=== PATIENT | male | born 1970 | race African-American/Black ===

== ENCOUNTER 2017-07-09 00:10 | Emergency (ER) | payer SELFPAY ==
[~2017-07-09] VITALS: Ht 185.4 cm; Wt 87.0 kg
[2017-07-09] MEDS ORDERED: HYDROCODONE/ACETAMINOPHEN 5/325MG TABLET PO ONE (02:15)
[2017-07-09 04:20] VITALS: BP 125/74
== END 2017-07-09 04:20 | disposition home or self-care (01) ==
LOC: ER 01:08
DX: S16.1XXA Strain of muscle, fascia and tendon at neck level, initial encounter (principal); S09.90XA Unspecified injury of head, initial encounter; Y08.89XA Assault by other specified means, initial encounter; Y93.89 Activity, other specified; Y92.89 Other specified places as the place of occurrence of the external cause; Y99.8 Other external cause status
CPT/HCPCS: 70450; 72125; 99284; Z7610

== ENCOUNTER 2017-09-27 09:12 | Emergency (ER) | payer SELFPAY ==
[~2017-09-27] VITALS: Ht 185.4 cm; Wt 100.0 kg
[2017-09-27] MEDS ORDERED: SODIUM CHLORIDE 0.9% 250 ML IV ONE (14:48)
[2017-09-27] MEDS ORDERED: ONDANSETRON HCL 4MG/2ML VIAL IV STA (14:48)
[2017-09-27 16:21] LABS: BASOPHILS % 0.7 % (0.0-2.0); EOSINOPHILS % 0.5 % (0.0-5.0); HEMATOCRIT. 44.4 % (42.0-52.0); HEMOGLOBIN. 15.3 g/dL (14.0-18.0); MEAN CORPUSCULAR HEMOGLOBIN 28.4 pg (28.0-32.0); MEAN CORPUSCULAR VOLUME 82.1 fL (80.0-94.0); MEAN PLATELET VOLUME 7.4 fl (7.4-10.4); MONOCYTES % 9.1 % (2.0-8.0); NEUTROPHILS % 57.7 % (40.0-76.0); PLATELET 203 x1000/uL (130-400); RED CELL DISTRIBUTION WIDTH 15.6 % (11.6-14.6)
[2017-09-27 16:27] LABS: CHLORIDE 102 mEq/L (98-107)
[2017-09-27 17:40] VITALS: BP 124/83
== END 2017-09-27 17:44 | disposition home or self-care (01) ==
LOC: ER 09:47
DX: R53.1 Weakness (principal); R42 Dizziness and giddiness; R11.0 Nausea; F12.10 Cannabis abuse, uncomplicated
CPT/HCPCS: 36415; 80053; 85025; 93005; 96361; 96374; 99285; J2405; J7030; Z7610; J7050

== ENCOUNTER 2018-01-09 18:13 | Inpatient (IN) | payer SELFPAY ==
[~2018-01-09] VITALS: Ht 185.4 cm; Wt 90.7 kg
[2018-01-09] MEDS ORDERED: SODIUM CHLORIDE 0.9% 1,000 ML IV ONE (22:53)
[2018-01-09] MEDS ORDERED: FAMOTIDINE 20MG/2ML VIAL IV STA (22:53)
[2018-01-09] MEDS ORDERED: ONDANSETRON HCL 4MG/2ML INJ IV STA (22:53)
[2018-01-10 00:46] LABS: CHLORIDE 104 mEq/L (98-107)
[2018-01-10 01:00] LABS: BASOPHILS % 0.2 % (0.0-2.0); EOSINOPHILS % 3.3 % (0.0-5.0); HEMATOCRIT. 45.5 % (42.0-52.0); HEMOGLOBIN. 15.5 g/dL (14.0-18.0); LYMPHOCYTES % 24.3 % (20.0-50.0); MEAN CORPUSCULAR HEMOGLOBIN 28.9 pg (28.0-32.0); MEAN PLATELET VOLUME 7.7 fl (7.4-10.4); MONOCYTES % 9.3 % (2.0-8.0); NEUTROPHILS % 62.9 % (40.0-76.0); PLATELET 253 x1000/uL (130-400); RED BLOOD CELL COUNT 5.36 mill/uL (4.7-6.1); RED CELL DISTRIBUTION WIDTH 15.6 % (11.6-14.6)
[2018-01-10] MEDS ORDERED: ONDANSETRON HCL 4MG/2ML INJ IV STA (01:02)
[2018-01-10] MEDS ORDERED: MORPHINE SULFATE 4 MG/ML CPJ (NOT FOR IM USE) IV STA (01:02)
[2018-01-10] MEDS ORDERED: SODIUM CHLORIDE 0.9% 1,000 ML IV ONE (01:02)
[2018-01-10 01:57] LABS: CLARITY URINE CLEAR (CLEAR); COLOR URINE YELLOW (YELLOW); KETONES URINE 1+ (NEGATIVE); LEUKOCYTE ESTERASE URINE NEGATIVE (NEGATIVE); NITRITE URINE NEGATIVE (NEGATIVE); OCCULT BLOOD URINE NEGATIVE (NEGATIVE); PROTEIN URINE NEGATIVE (NEGATIVE); SPECIFIC GRAVITY URINE 1.013 (1.005-1.030)
[2018-01-10] MEDS ORDERED: ONDANSETRON HCL 4MG/2ML INJ IV PRN (06:15)
[2018-01-10] MEDS: MORPHINE SULFATE 4 MG/ML CPJ (NOT FOR IM USE) IV PRN ×3 (06:45→20:29)
[2018-01-10] MEDS: NICOTINE 21MG PATCH TD SCH (06:46)
[2018-01-10 08:00] VITALS: BP 103/54
[2018-01-10] MEDS ORDERED: RISO02 PO (09:45)
[2018-01-10] MEDS ORDERED: TRAZ-212 PO (09:45)
[2018-01-10] MEDS: DEXT 5%/0.9% NACL 1,000 ML IV SCH ×2 (11:21→23:53)
[2018-01-10 12:00] VITALS: BP 98/59
[2018-01-10 16:00] VITALS: BP 114/64
[2018-01-10 16:08] LABS: BASOPHILS % 0.4 % (0.0-2.0); EOSINOPHILS % 4.3 % (0.0-5.0); HEMATOCRIT. 44.7 % (42.0-52.0); LYMPHOCYTES % 29.7 % (20.0-50.0); MEAN CORPUSCULAR HEMOGLOBIN 28.7 pg (28.0-32.0); MEAN CORPUSCULAR VOLUME 85.6 fL (80.0-94.0); MEAN PLATELET VOLUME 7.7 fl (7.4-10.4); MONOCYTES % 9.2 % (2.0-8.0); NEUTROPHILS % 56.4 % (40.0-76.0); PLATELET 221 x1000/uL (130-400); RED BLOOD CELL COUNT 5.22 mill/uL (4.7-6.1); RED CELL DISTRIBUTION WIDTH 15.3 % (11.6-14.6)
[2018-01-10 16:28] LABS: CHLORIDE 108 mEq/L (98-107)
[2018-01-10 20:00] VITALS: BP 110/62
[2018-01-11] VITALS: BP_SYST 121; BP_SYST 99; BP_DIAS 56; BP_DIAS 98
[2018-01-11 04:00] VITALS: BP 121/88
[2018-01-11] MEDS: MORPHINE SULFATE 4 MG/ML CPJ (NOT FOR IM USE) IV PRN ×4 (05:53→21:09)
[2018-01-11 08:00] VITALS: BP 106/67
[2018-01-11] MEDS: NICOTINE 21MG PATCH TD SCH (08:47)
[2018-01-11 12:00] VITALS: BP 108/65
[2018-01-11 15:31] LABS: BASOPHILS % 0.3 % (0.0-2.0); EOSINOPHILS % 3.2 % (0.0-5.0); HEMATOCRIT. 41.6 % (42.0-52.0); HEMOGLOBIN. 13.9 g/dL (14.0-18.0); LYMPHOCYTES % 35.4 % (20.0-50.0); MEAN CORPUSCULAR HEMOGLOBIN 28.7 pg (28.0-32.0); MEAN CORPUSCULAR VOLUME 85.7 fL (80.0-94.0); MEAN PLATELET VOLUME 7.6 fl (7.4-10.4); MONOCYTES % 8.5 % (2.0-8.0); NEUTROPHILS % 52.6 % (40.0-76.0); PLATELET 197 x1000/uL (130-400); RED BLOOD CELL COUNT 4.86 mill/uL (4.7-6.1); RED CELL DISTRIBUTION WIDTH 15.2 % (11.6-14.6)
[2018-01-11 15:52] LABS: CHLORIDE 110 mEq/L (98-107)
[2018-01-11 15:54] LABS: HDL CHOLESTEROL 43 mg/dL (40-59); LDL CHOLESTEROL 88 mg/dL (5-100)
[2018-01-11 16:00] VITALS: BP 112/67
[2018-01-11 20:00] VITALS: BP 111/63
[2018-01-11] MEDS ORDERED: TRAZODONE HCL 100MG TABLET PO SCH (21:00)
[2018-01-11] MEDS: DEXT 5%/0.9% NACL 1,000 ML IV SCH (22:38)
[2018-01-12 04:00] VITALS: BP 116/72
[2018-01-12] MEDS: MORPHINE SULFATE 4 MG/ML CPJ (NOT FOR IM USE) IV PRN (05:30)
[2018-01-12 08:00] VITALS: BP 116/63
[2018-01-12] MEDS: DEXT 5%/0.9% NACL 1,000 ML IV SCH (08:56)
[2018-01-12] MEDS: NICOTINE 21MG PATCH TD SCH (08:56)
[2018-01-12 12:55] VITALS: BP 106/68
[2018-01-12 13:33] LABS: CHLORIDE 111 mEq/L (98-107)
[2018-01-12 13:39] LABS: AMYLASE 102 IU/L (25-115)
[2018-01-12 16:42] VITALS: BP 116/73
== END 2018-01-12 17:17 | disposition home or self-care (01) | DRG 282 ==
LOC: ER 18:13 → 6EST 01-10 01:47 → ENRESERV 01-10 05:10 → ER 01-10 05:27
PROVIDERS: ADMIT Family Medicine; ATTEND Family Medicine
DX: K85.90 Acute pancreatitis without necrosis or infection, unspecified (principal); E86.0 Dehydration; Z72.89 Other problems related to lifestyle
CPT/HCPCS: 36415; 71045; 74176; 76705; 80061; 82150; 93005; 96361; 96374; 96375; 99285; J2270; J2405; J3490; J7030; J7042

== ENCOUNTER 2018-02-01 11:59 | Emergency (ER) | payer SELFPAY ==
[~2018-02-01] VITALS: Ht 185.4 cm; Wt 86.0 kg
[~2018-02-01 11:59] MED LIST: RISO02 PO; TRAZ-212 PO
[2018-02-01] MEDS ORDERED: ONDANSETRON HCL 4MG/2ML INJ IV STA (18:47)
[2018-02-01] MEDS ORDERED: SODIUM CHLORIDE 0.9% 1,000 ML IV ONE ×2 (18:47→20:54)
[2018-02-01] MEDS ORDERED: MORPHINE SULFATE 4 MG/ML CPJ (NOT FOR IM USE) IV STA (18:47)
[2018-02-01] MEDS ORDERED: FAMOTIDINE 20MG/2ML VIAL IV STA (18:47)
[2018-02-01 19:24] LABS: BASOPHILS % 0.5 % (0.0-2.0); EOSINOPHILS % 5.4 % (0.0-5.0); HEMATOCRIT. 45.9 % (42.0-52.0); HEMOGLOBIN. 15.3 g/dL (14.0-18.0); LYMPHOCYTES % 34.7 % (20.0-50.0); MEAN CORPUSCULAR HEMOGLOBIN 28.3 pg (28.0-32.0); MEAN CORPUSCULAR VOLUME 84.9 fL (80.0-94.0); MEAN PLATELET VOLUME 7.7 fl (7.4-10.4); MONOCYTES % 8.2 % (2.0-8.0); NEUTROPHILS % 51.2 % (40.0-76.0); PLATELET 208 x1000/uL (130-400); RED CELL DISTRIBUTION WIDTH 15.1 % (11.6-14.6)
[2018-02-01 19:31] LABS: PROTHROMBIN TIME 9.9 sec (9.1-11.1)
[2018-02-01 19:32] LABS: CHLORIDE 106 mEq/L (98-107)
[2018-02-01] MEDS ORDERED: MORPHINE SULFATE 4 MG/ML CPJ (NOT FOR IM USE) IV ONE (21:00)
[2018-02-02 00:20] VITALS: BP 109/69
== END 2018-02-02 00:23 | disposition home or self-care (01) ==
LOC: ER 16:38
DX: K85.90 Acute pancreatitis without necrosis or infection, unspecified (principal); F12.10 Cannabis abuse, uncomplicated; F17.200 Nicotine dependence, unspecified, uncomplicated; Z79.899 Other long term (current) drug therapy
CPT/HCPCS: 36415; 80053; 83605; 83690; 85025; 85610; 96361; 96374; 96375; 96376; 99285; J2270; J2405; J3490; J7030